=== PATIENT | male | born 1995 | race African-American/Black ===

== ENCOUNTER 2024-11-05 22:16 | Emergency (ER) | payer MEDICAID ==
[~2024-11-05] VITALS: Ht 188 cm; Wt 73.0 kg
[~2024-11-05 22:16] MED LIST: VYVANCE
[2024-11-05 22:58] VITALS: TEMP 36.9; O2SAT 100
[2024-11-05] MEDS ORDERED: CEPH500C2 MT (23:56)
[2024-11-05] MEDS ORDERED: BO1 TP (23:56)
[2024-11-06 00:28] VITALS: BP 119/68; PULSE 76; RESP 18; O2SAT 100
== END 2024-11-06 00:34 | disposition home or self-care (01) ==
LOC: ER 22:16
DX: M79.641 Pain in right hand (principal)
CPT/HCPCS: 99283; 73100; A6449